=== PATIENT | male | born 1935 | race Caucasian/White ===

== ENCOUNTER 2017-11-12 17:30 | Emergency (ER) | payer OTHER, MEDICARE ==
[~2017-11-12] VITALS: Ht 167.6 cm; Wt 77.1 kg
[~2017-11-12 17:30] MED LIST: BUSPIRONE HCL15 MG; LORAZEPAM1 MG PO; SIMVASTATIN40 MG PO
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
[2017-11-12] MEDS ORDERED: NAPROXEN375 M2 PO (19:35)
[2017-11-12] MEDS ORDERED: TYLENOL WITH C1 EACH PO (19:35)
[2017-11-12 19:52] VITALS: BP 162/80
== END 2017-11-12 20:15 ==
LOC: ERH 17:30
DX: T15.81XA Foreign body in other and multiple parts of external eye, right eye, initial encounter (principal); S06.0X9A Concussion with loss of consciousness of unspecified duration, initial encounter; S09.90XA Unspecified injury of head, initial encounter; S00.01XA Abrasion of scalp, initial encounter; V49.40XA Driver injured in collision with unspecified motor vehicles in traffic accident, initial encounter; Y92.9 Unspecified place or not applicable
CPT/HCPCS: J3490

== ENCOUNTER 2018-04-14 09:36 | Emergency (ER) | payer OTHER, MEDICARE ==
[~2018-04-14] VITALS: Ht 167.6 cm; Wt 72.6 kg
[~2018-04-14 09:36] MED LIST changes: +AMOXICILLIN500 M3 PO; +IBUPROFEN600 M1 PO; +NAPROXEN375 M2 PO; +TYLENOL WITH C1 EACH PO
[2018-04-14 09:47] VITALS: BP 148/76
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
== END 2018-04-14 11:17 ==
LOC: ERH 09:36
DX: Z48.01 Encounter for change or removal of surgical wound dressing (principal)